=== PATIENT | female | born 1975 | race Caucasian/White ===

== ENCOUNTER 2025-06-07 17:05 | Emergency (ER) | payer OTHER ==
[~2025-06-07] VITALS: Ht 167.6 cm; Wt 73.5 kg
[~2025-06-07 17:05] MED LIST: AMOCLA500 PO; Augmentin 875-1 EACH PO; CYCL10 PO; DOC250 PO; ESCI10 PO; FLUC150A PO; IBUP800 PO; KETO10 PO; OMEP10ER; OXYACE5T PO; Percocet 5-3251 EACH PO; Valium5 MG PO
[2025-06-07 17:28] VITALS: BP 129/69
== END 2025-06-07 18:57 | disposition home or self-care (01) ==
LOC: ER 17:05
DX: S61.421A Laceration with foreign body of right hand, initial encounter (principal); W45.8XXA Other foreign body or object entering through skin, initial encounter; Z23 Encounter for immunization; Z88.5 Allergy status to narcotic agent
CPT/HCPCS: 10120; 90471; 90715; 99283-25